=== PATIENT | male | born 1955 | race Asian ===

== ENCOUNTER 2018-12-14 06:43 | Day surgery (SDC) | payer OTHER ==
[2018-12-14] MEDS ORDERED: SOD CHLORIDE 0.9% 1,000 ML IV (07:00)
[2018-12-14] MEDS ORDERED: CEFAZOLIN 2 GM/50 ML (PMX) 50 ML IVPB (07:00)
[2018-12-14 08:29] LABS: ADD MAN DIFF? NO
[2018-12-14 08:36] LABS: WHITE BLOOD COUNT 8.2 10^3/ul (4.8-10.8)
[2018-12-14 08:36] LABS: BASOPHIL # 0.1 10^3/ul (0.0-0.1); BASOPHILS % 0.9 % (0.0-2.0); EOSINOPHILS # 0.5 10^3/ul (0.0-0.5); EOSINOPHILS % 5.7 % (0.0-7.0); HEMATOCRIT 40.6 % (42.0-52.0); HEMOGLOBIN 14.6 g/dl (14.0-18.0); LYMPHOCYTES # 2.3 10^3/ul (0.8-2.9); LYMPHOCYTES % 28.4 % (15.0-51.0); MEAN CORPUSCULAR HEMOGLOBIN 31.3 pg (29.0-33.0); MEAN CORPUSCULAR VOLUME 87.1 fl (82.0-101.0); MEAN PLATELET VOLUME 10.4 fl (7.4-10.4); MONOCYTE # 0.7 10^3/ul (0.3-0.9); MONOCYTES % 8.1 % (0.0-11.0); NEUTROPHIL # 4.6 10^3/ul (1.6-7.5); NEUTROPHILS % 56.4 % (39.0-77.0); PLATELET COUNT 245 10^3/UL (140-415); RED BLOOD COUNT 4.66 10^6/ul (4.70-6.10); RED CELL DISTRIBUTION WIDTH 11.6 % (11.5-14.5)
[2018-12-14 08:57] LABS: INR 0.91; PARTIAL THROMBOPLASTIN TIME 31.5 Sec (23.0-35.0); PROTIME 12.4 Sec (11.9-14.9)
[2018-12-14 09:03] LABS: ALANINE AMINOTRANSFERASE 29 IU/L (13-69); ALBUMIN 4.5 g/dl (3.3-4.9); ALKALINE PHOSPHATASE 51 IU/L (42-121); ANION GAP 12 (5-13); ASPARTATE AMINO TRANSFERASE 25 IU/L (15-46); BILIRUBIN,INDIRECT 0.6 mg/dl (0-1.1); BILIRUBIN,TOTAL 0.6 mg/dl (0.2-1.3); BLOOD UREA NITROGEN 16 mg/dl (7-20); CALCIUM 9.2 mg/dl (8.4-10.2); CARBON DIOXIDE 27 mmol/L (21-31); CHLORIDE 104 mmol/L (97-110); CREATININE 0.94 mg/dl (0.61-1.24); Estimated GFR > 60 mL/min (>60); GLUCOSE 127 mg/dl (70-220); POTASSIUM 4.2 mmol/L (3.5-5.1); SODIUM 143 mmol/L (135-144); TOTAL PROTEIN 7.3 g/dl (6.1-8.1)
[2018-12-14] MEDS ORDERED: MIDAZOLAM 1 MG/ML 2 ML INJ (10:15)
[2018-12-14] MEDS ORDERED: FENTAnyl 50 MCG/ML VIAL (10:15)
[2018-12-14] MEDS: BUPIVACAINE 0.25% (MPF) 30 ML INJ (10:33)
[2018-12-14] MEDS ORDERED: LIDOCAINE 2% (SDV) 5 ML INJ (10:34)
[2018-12-14] MEDS ORDERED: CEFAZOLIN 1 GM INJ (10:34)
[2018-12-14] MEDS ORDERED: PROPOFOL 20 ML (10:34)
[2018-12-14] MEDS ORDERED: ONDANSETRON 4 MG INJ (10:35)
[2018-12-14] MEDS ORDERED: hydrALAzine 20 MG INJ IV (11:00)
[2018-12-14] MEDS ORDERED: METOCLOPRAMIDE 10 MG INJ IV (11:00)
[2018-12-14] MEDS ORDERED: ONDANSETRON 4 MG INJ IV (11:00)
[2018-12-14] MEDS ORDERED: LABETALOL HCL 20MG INJ IV (11:00)
[2018-12-14] MEDS ORDERED: HYDROmorphONE 1 MG/5 ML IV SYRINGE IV ×2 (11:00)
[2018-12-14] MEDS ORDERED: HYDROCODONE/APAP (5/325) TAB PO (11:00)
[2018-12-14] MEDS ORDERED: DIPHENHYDRAMINE 50 MG INJ IV (11:00)
[2018-12-14] MEDS ORDERED: FENTAnyl 50 MCG/ML VIAL IV (11:00)
[2018-12-14] MEDS ORDERED: MEPERIDINE 25 MG INJ IV (11:00)
== END 2018-12-14 12:45 | disposition home or self-care (01) ==
LOC: SDS 06:43
DX: L72.0 Epidermal cyst (principal); I10 Essential (primary) hypertension; E78.5 Hyperlipidemia, unspecified; J44.9 Chronic obstructive pulmonary disease, unspecified; Z87.891 Personal history of nicotine dependence; E66.9 Obesity, unspecified
CPT/HCPCS: 14021; 71045; 80053; 85025; 85610; 85730; 88307; 93005